=== PATIENT | male | born 1955 | race Caucasian/White ===

== ENCOUNTER 2023-07-26 11:50 | Emergency (ER) | payer MEDICARE, SELFPAY ==
[2023-07-26] VITALS (9 sets, daily range): BP systolic 129–158; BP diastolic 89–100; PULSE 73–89; RESP 15–26; TEMP 36.7; O2SAT 93–96; BMI 30.6
--- NOTE | 2023-07-26 13:23 | XRR_ITS ---
PROCEDURE INFORMATION: Exam: XR Chest Exam date and time: 07/26/2023 1:41 PM Age: 67 years old Clinical indication: Pain; Angina pectoris; Additional info: Cxp TECHNIQUE: Imaging protocol: Radiologic exam of the chest. Views: 1 view. COMPARISON: CR XR chest 2V* [id number] 05/16/2019 9:57 AM FINDINGS: Lungs: Unremarkable. No consolidation. Pleural spaces: Unremarkable. No pleural effusion. No pneumothorax. Heart/Mediastinum: Unremarkable. No cardiomegaly. Bones/joints: Unremarkable. XR/XR chest 1V portable [id number] IMPRESSION: No acute findings.
--- NOTE | 2023-07-26 13:23 | ECG_ITS ---
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 Measurements Intervals [place] Rate: 78 P: 34 MO: 173 QRS: -38 QRSD: 95 T: 38 QT: 355 QTc: 406 Interpretive Statements SINUS RHYTHM WITH SINUS ARRHYTHMIA LEFT AXIS DEVIATION [QRS AXIS < -30] INCOMPLETE RIGHT BUNDLE BRANCH BLOCK [90+ ms QRS DURATION, TERMINAL R IN V1/V2, 40+ ms S IN I/aVL/V4/V5/V6] No previous ECG available for comparison Electronically Signed On 07-26-2023 14:23:33 HYDRO STATION OPERATOR by Pieter Walker M.D. [id number]
--- NOTE | 2023-07-26 13:23 | W.ED.CHESTPA ---
HPI - Chest Pain General: Chief Complaint: Chest Pain Stated Complaint: chest pain Time Seen by Provider: 07/26/23 12:23 History of Present Illness: 67-year-old male presents the emergency department stating that he had some left arm pain prior to going to sleep last night. He states he woke up this morning with no symptoms. He states that approximately 10 AM the left arm pain returned as well as to the left chest wall. He states he did feel nauseated and diaphoretic with some intermittent dizziness. He does report feeling like he was short of breath at that time. He states he did not have nausea or vomiting. Associated symptoms: Reports dyspnea and nausea Risk Factors: Coronary artery disease risk factors: diabetes and hyperlipidemia Review of Systems General: Reports: 10 or more systems reviewed and unremarkable except in HPI and below Card: Reports: chest pain Resp: Reports: dyspnea GI: Reports: nausea PFSH ED PFSH: Medical History (Updated 07/26/23 @ 15:34 by Tai Castro MD) Benign prostate hyperplasia Diabetes Family History (Updated 11/30/21 @ 15:36 by Matilda Morel LPN) Other CAD (coronary artery disease) Cancer Diabetes Social History Smoking and tobacco/nicotine status: never used tobacco/nicotine Physical Exam Narrative: EXAM NARRATIVE: Constitutional: the patient appears well nourished and with normal development. Vital signs reviewed as documented. HENMT: Normocephalic, atraumatic. Extermal ears with normal appearance without drainage. Nose without drainage, normal appearance. Mucus membranes moist. Neck is supple, No jugular venous distension, trachea is midline, no appreciable carotid bruits. No lymphadenopathy. No meningeal signs. Flexion, extension and lateral rotation is without pain. Eyes: Pupils are equal, round, reactive to light and accommodation. No scleral icterus. Extra-ocular movement are intact. Thorax is symmetrical and with equal rise and fall with respirations. Resp: Lungs are clear to auscultation. No wheezes, rales, crackles or ronchi at present. Cardio: Regular rate and rhythm. Positive S1, S2. No appreciable murmurs, rubs or gallops. GI: Abdominal exam reveals normal bowel sounds to all quadrants. No organomegaly. No obvious palpable masses noted. No hepatomegally appreciated. Soft, nontender to palpation. Extremity: Extremities are non-edematous and both femoral and pedal pulses are 2+ and equal bilaterally. Moves all extremities well, sensation in all extremities. Neuro: Alert and oriented x4, person, place, time and situation. Cranial nerves II through XII are grossly intact, there is no focal neurological deficits that I can appreciate at present. Motor strength in the upper and lower extremities are equal and bilateral 5/5. Psych: Cooperative, calm, normal thought process, appropriate judgment. Skin: No lesions, rashes. No gross abnormalities noted. Back: Symmetrical, no obvious deformity, No CVA tenderness Course Vital Signs: Vital signs: Vital Signs Temperature 98.0 F 07/26/23 12:01 Pulse Rate 89 07/26/23 14:29 Respiratory Rate 24 H 07/26/23 14:29 Blood Pressure 144/91 07/26/23 14:29 Pulse Oximetry 96 07/26/23 14:29 Oxygen Delivery Me thod Room Air 07/26/23 14:29 MDM - Chest Pain Medical Decision Making Physical exam completed and documented, I will obtain a CBC, CMP cardiac enzymes as well as EKG and chest x-ray for evaluation. I will provide the patient cardiac dose aspirin as well as nitroglycerin. Differential diagnosis includes costochondritis atypical chest pain, NSTEMI, STEMI, musculoskeletal strain. Medical Records I reviewed the patient's medical records. Lab Data I reviewed the patient's lab results. 07/26/23 12:26 07/26/23 12:26 Radiology Impressions Chest X-Ray 07/26/23 13:23 IMPRESSION: No acute findings. Laboratory Results WBC 5.37 10^3/uL (3.29-11.43) 07/26/23 12: RBC 5.25 10^6/uL (3.85-5.65) 07/26/23 12:26 Hgb 15.30 g/dL (11.27-16.99) 07/26/23 12: Hct 46.5 % (37-53) 07/26/23 12: MCV 88.6 fl (82-101) 07/26/23 12:26 MCH 29.1 pg (27-33) 07/26/23 12: MCHC 32.9 g/dL (30-55) 07/26/23 12: RDW 13.3 % (12.1-15.1) 07/26/23 12:26 Plt Count 181 10^3/cmm (157-399) 07/26/23 12: MPV 10.5 fL (7.4-10.4) H 07/26/23 12: Neut % (Auto) 56.0 % 07/26/23 12: Lymph % (Auto) 30.4 % 07/26/23 12: [place] % (Auto) 10.4 % 07/26/23 12: Eos % (Auto) 1.9 % 07/26/23 12: Baso % (Auto) 0.9 % 07/26/23 12: Neut # (Auto) 3.01 10^3/uL (1.8-7.7) 07/26/23 12: Lymph # (Auto) 1.6 10^3/uL (0.8-4.8) 07/26/23 12: [place] # (Auto) 0.6 10^3/uL (0.2-0.9) 07/26/23 12: Eos # (Auto) 0.1 10^3/uL (0.0-0.8) 07/26/23 12: Baso # (Auto) 0.1 10^3/uL (0.0-0.1) 07/26/23 12: Nucleated RBC % (auto) 0 % 07/26/23 12: Nucleated RBCs # 0.0 /100WBC 07/26/23 12: PT 13.50 SECONDS (12.1-14.9) 07/26/23 12: INR 1.00 (0.8-1.2) 07/26/23 12: APTT 31.3 SECONDS (23.9-36.7) 07/26/23 12:26 Sodium 139 mmol/L (136-145) 07/26/23 12: Potassium 4.4 mmol/L (3.5-5.1) 07/26/23 12: Chloride 105 mmol/L (98-107) 07/26/23 12: Carbon Dioxide 23 mmol/L (22-29) 07/26/23 12: Anion Gap 15.4 (5-19) 07/26/23 12: BUN 18 mg/dL (8-23) 07/26/23 12: Creatinine 1.0 mg/dL (0.7-1.2) 07/26/23 12:26 GFR Calculation 75.0 mL/min (90-130) L 07/26/23 12:26 Glucose 113 mg/dL (65-115) 07/26/23 12:26 Calculated Osmolality 291 mOsm/kg (285-295) 07/26/23 12:26 Calcium 9.6 mg/dL (8.5-10.5) 07/26/23 12:26 Total Bilirubin 0.4 mg/dL (0.15-1.2) 07/26/23 12:26 AST 26 U/L (0-40) 07/26/23 12:26 ALT 36 U/L (0-41) 07/26/23 12:26 Alkaline Phosphatase 108 U/L (40-130) 07/26/23 12:26 Troponin T Baseline 10 ng/L (0-15) 07/26/23 12:26 Troponin T 120 Minute 8.98 ng/L (0-15) 07/26/23 14:18 Delta Troponin T -1.02 ABS# (0-10) L 07/26/23 14:18 NT-Pro-B Natriuret Pep 36 pg/mL (0-125) 07/26/23 12:26 Total Protein 7.4 g/dL (6.6-8.7) 07/26/23 12:26 Albumin 4.6 g/dL (3.5-5.2) 07/26/23 12:26 Globulin 2.8 g/dL (1.3-4.6) 07/26/23 12:26 All radiology interpretation(s) finalized by discharge Discharge Plan Discharge Patient Disposition: Home Clinical Impression: Atypical chest pain Condition: Stable Prescriptions: No Action ibuprofen 200 mg Tablet 400 - 800 mg PO Q6H PRN (Reason: Pain) Discharge Orders: Discharge ED (Routine); Ordered 07/26/23 Ordered By: Tai Castro Referrals: Nicci Lagunas MD [Physician] - Danya Shafer DO [Primary Care Provider] - Discharge Diet: Advance as tolerated Discharge Activity: Resume usual activity Patient Instructions: Opioid Safety, Pain Management Activity Restrictions/Additional Instructions: Activity Restrictions/Additional Instructions: Thank you for choosing [facility] for your healthcare needs today. Please realize that you were seen in the Emergency Department and that we are providing you with an emergency medical screening exam and this may not be complete and all inclusive of all the testing and or medical work-up that you may need to determine your ailment or severity of your illness. It is very important that you follow-up as instructed with your Primary care provider or Specialist for additional evaluation and to discuss your medical treatment plan. You may return to the Emergency Department should you have concerns or if your condition changes or worsens in any way. Coding Level of Care Code ED Grinder Set Up Operator Universal for Klarissa Choi
[2023-07-26] MEDS: aspirin 81 mg Chew Tablet 324 MG PO (13:27)
[2023-07-26 13:37] LABS: Basophils # 0.1 10^3/uL (0.0-0.1); Basophils % 0.9 %; Eosinophils # 0.1 10^3/uL (0.0-0.8); Eosinophils % 1.9 %; Hematocrit 46.5 % (37-53); Lymphocytes # 1.6 10^3/uL (0.8-4.8); Lymphocytes % 30.4 %; Mean Corpuscular HGB Conc 32.9 g/dL (30-55); Mean Corpuscular Hemoglobin 29.1 pg (27-33); Mean Corpuscular Volume 88.6 fl (82-101); Mean Platelet Volume 10.5 fL (7.4-10.4); Monocytes # 0.6 10^3/uL (0.2-0.9); Monocytes % 10.4 %; Neutrophils # 3.01 10^3/uL (1.8-7.7); Nucleated Red Blood Cells % 0 %; Platelet Count 181 10^3/cmm (157-399); Red Blood Count 5.25 10^6/uL (3.85-5.65); Red Cell Distribution Width 13.3 % (12.1-15.1); White Blood Count 5.37 10^3/uL (3.29-11.43)
[2023-07-26 13:44] LABS: Partial Thromboplastin Time 31.3 SECONDS (23.9-36.7)
[2023-07-26 13:47] LABS: Troponin(5th) Baseline 10 ng/L (0-15)
[2023-07-26 13:55] LABS: Alanine Aminotransferase 36 U/L (0-41); Albumin Level 4.6 g/dL (3.5-5.2); Alkaline Phosphatase 108 U/L (40-130); Anion Gap 15.4 (5-19); Aspartate Amino Transferase 26 U/L (0-40); Blood Urea Nitrogen 18 mg/dL (8-23); Calcium 9.6 mg/dL (8.5-10.5); Carbon Dioxide 23 mmol/L (22-29); Chloride 105 mmol/L (98-107); Globulin 2.8 g/dL (1.3-4.6); Glucose 113 mg/dL (65-115); NT Pro B Type Natriuretic Pept 36 pg/mL (0-125); Osmolality Calculated 291 mOsm/kg (285-295); Potassium 4.4 mmol/L (3.5-5.1); Sodium 139 mmol/L (136-145); Total Bilirubin 0.4 mg/dL (0.15-1.2); Total Protein 7.4 g/dL (6.6-8.7)
[2023-07-26] MEDS: nitroglycerin 1 gm/inch oint Pkt 1 INCH TOPICAL (14:07)
[2023-07-26 15:01] LABS: Troponin 5 2HR 8.98 ng/L (0-15); Troponin 5 2HR Delta -1.02 ABS# (0-10)
--- NOTE | 2023-07-26 15:20 | ECG_ITS ---
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 Measurements Intervals Rosalie Rate: 80 P: 20 SC: 169 QRS: -57 QRSD: 90 T: 42 QT: 365 QTc: 424 Interpretive Statements SINUS RHYTHM LEFT AXIS DEVIATION [QRS AXIS < -30] POSSIBLE RIGHT VENTRICULAR CONDUCTION DELAY [RSR (QR) IN V1/V2] Compared to ECG 07/26/2023 11:58:58 No significant change Electronically Signed On 07-28-2023 13:41:34 STAVE BLOCK SPLITTER by Pieter Walker M.D. [id number]
== END 2023-07-26 15:55 | disposition home or self-care (01) ==
PROVIDERS: Emergency Provider Internal Medicine; PCP Family Medicine
DX: R07.89 Other chest pain (principal); E11.9 Type 2 diabetes mellitus without complications
CPT/HCPCS: 36415; 71045; 80053; 83880; 84484; 85025; 85610; 85730; 93005; 93010; 99285

== ENCOUNTER → 2023-08-11 10:42 | Outpatient (BNVA) | payer MEDICARE, SELFPAY | PROVIDERS: PCP Family Medicine; Visit Provider Internal Medicine Cardiovascular Disease | DX: R07.2 Precordial pain (principal); E11.9 Type 2 diabetes mellitus without complications; E78.5 Hyperlipidemia, unspecified; R03.0 Elevated blood-pressure reading, without diagnosis of hypertension | CPT/HCPCS: 99204 ==

== ENCOUNTER 2023-08-23 12:04 | Outpatient (CLI) | payer MEDICARE, SELFPAY ==
--- NOTE | 2023-08-23 12:15 | USCV_ITS ---
Robert Gibbons Age: 67 Gender: M : 1955 Exam Date: 08/23/2023 12:24 Ordering Phys: Nicci Lagunas MD ([email or web address]) Technologist: Ana Maria Valenzuela Exam Location: [facility] [place] Indication: CHEST PAIN BP: 145 / 101 HR: 62 Rhythm: Sinus Technical Quality: Adequate MEASUREMENTS (Male / Female) Normal Values 2D ECHO LV Diastolic Diameter PLAX 4.1 cm 4.2 - 5.9 / 3.9 - 5.3 cm LV Systolic Diameter PLAX 3.4 cm LV Chamber Size 3.3 cm IVS Diastolic Thickness 1.1 cm 0.6 - 1.0 / 0.6 - 0.9 cm IVS Systolic Thickness 1.3 cm LVPW Diastolic Thickness 1.8 cm 0.6 - 1.0 / 0.6 - 0.9 cm LVPW Systolic Thickness 1.8 cm RV Chamber Size 2.8 cm LV Ejection Fraction 2D Teich 24.4 % LV Ejection Fraction MOD 2C 52.4 % LV Ejection Fraction 2C AL 53.3 % LA Diameter 3.2 cm LA Width 3.0 cm LA Height 4.3 cm RA Width 3.1 cm RA Height 3.7 cm Aorta at Sinotubular Diameter 3.4 cm IVC Diameter 1.5 cm M-MODE Aortic Annulus Diameter 3.9 cm LA Ao Ratio MM 1.1 MV E Point Septal Separation 0.8 cm DOPPLER AV Peak Velocity 126.0 cm/s LVOT Peak Velocity 84.0 cm/s MV Area PHT 2.8 cm squared Mitral E to A Ratio 0.8 MV E' Velocity 29.5 cm/s Mitral E to MV E' Ratio 9.7 Mitral E to LV E' Lateral Ratio 9.4 Mitral E to LV E' Septal Ratio 10.1 TR Peak Velocity 244.3 cm/s TR Peak Gradient 23.9 mmHg TR Mean Velocity 199.5 cm/s TR Mean Gradient 17.3 mmHg TR Velocity Time Integral 75.4 cm Right Atrial Pressure 3.0 mmHg Pulmonary Artery Systolic Pressu 26.9 mmHg RV Acceleration Time 0.1 s RV Ejection Time 0.4 s RV AcT/ET 0.3 FINDINGS Left Ventricle Mild diffuse hypokinesia left ventricular ejection fraction of 52%mild left ventricular hypertrophy. Grade I/IV diastolic dysfunction (abnormal relaxation filling pattern), normal to mildly elevated filling pressures. Right Ventricle The right ventricle is normal in size and function. Right Atrium The right atrium is normal in size. Left Atrium Mildly increased left atrial size. Mitral Valve No gross abnormalities noted Aortic Valve Trace to mild aortic valve regurgitation. Thickened aortic valve. Tricuspid Valve Mild tricuspid valve regurgitation. Pulmonic Valve No gross abnormalities noted . Pericardium Normal pericardium without effusion. Aorta Normal ascending aorta dimension. IVC Normal inferior vena cava. CONCLUSIONS Mild diffuse hypokinesia left ventricular ejection fraction of 52%mild left ventricular hypertrophy. Grade I/IV diastolic dysfunction (abnormal relaxation filling pattern), normal to mildly elevated filling pressures. Trace to mild aortic valve regurgitation. Thickened aortic valve. Mild tricuspid valve regurgitation. There is no pericardial effusion. There are no intracardiac masses. No similar previous studies are available for comparison Dr Nicci Lagunas MD [facility] (Electronically Signed) Final Date: 28 August 2023 16:46 S
== END 2023-08-23 12:05 | disposition home or self-care (01) ==
LOC: RAD 12:05
PROVIDERS: PCP Family Medicine; Visit Provider Internal Medicine Cardiovascular Disease
DX: I08.2 Rheumatic disorders of both aortic and tricuspid valves (principal); R06.09 Other forms of dyspnea
CPT/HCPCS: 93306

== ENCOUNTER 2023-10-03 11:35 | Outpatient (CLI) | payer MEDICARE, SELFPAY ==
[2023-10-03 11:50] VITALS: BMI 30.9
--- NOTE | 2023-10-03 11:51 | ECG_ITS ---
[facility] Test Date: 2023-10-03 Pat Name: Robert Gibbons Department: Room: Gender: Male Lease Examiner: Jazzmine Roberts : 1955 Requested By: Nicci Lagunas Order Number: [id number] Araujo MD: Toni Gordon M.D. Interpretive Statements NAME OF STUDY: TREADMILL STRESS TEST INDICATION: [Chest Pain, ] EXERCISE DATA: The patient was exercised by Robert protocol. Baseline heart rate was 83 beats per minute. Baseline blood pressure was 120/79 millimeters of mercury. Target heart rate was 131 beats per minute. Maximum heart rate achieved was 139, which was 106 % of the target heart rate. Maximum blood pressure was 167/79 millimeters of mercury. Total exercise time was 7 minutes 38 seconds. Maximum METs achieved was 10.2. The reason for ending the test was completion of protocol. The patient complained of shortness of breath during the stress test, which then resolved at the end of the test. ELECTROCARDIOGRAM: BASELINE: Showed sinus rhythm, normal axis, no significant ST-T changes at the baseline noted. [] EXERCISE: At the peak exercise level, [] No significant ST-T changes suggestive of ischemia noted. [] RECOVERY: During the recovery period, heart rate dropped appropriately. No significant ST-T changes in the recovery suggestive of ischemia noted. [] CONCLUSION: 1. Exercise capacity is good. 2. Heart rate response was appropriate. 3. Blood pressure response was appropriate. 4. Symptoms not suggestive of ischemia. 5. Stress testing does not suggest ischemia. Electronically Signed On 10-09-2023 12:48:08 STENCIL MAKER by Toni Gordon M.D. [id number]
[2023-10-03 13:13] VITALS: BP 122/85; PULSE 99
== END 2023-10-03 11:36 | disposition home or self-care (01) ==
PROVIDERS: PCP Family Medicine; Visit Provider Internal Medicine Cardiovascular Disease
DX: R07.9 Chest pain, unspecified (principal)
CPT/HCPCS: 93017

== ENCOUNTER 2023-10-14 12:27 | Emergency (ER) | payer MEDICARE, SELFPAY ==
[2023-10-14 12:31] VITALS: BP 135/92; PULSE 89; RESP 16; TEMP 36.4; O2SAT 96
--- NOTE | 2023-10-14 14:55 | W.ED.EXTPRO ---
HPI - Extremity Problem General: Chief complaint: General Medical Stated complaint: left arm numbness ad tingle Time Seen by Provider: 10/14/23 14:34 Source: patient Mode of arrival: ambulatory Limitations: no limitations History of Present Illness: Patient is a very nice 68-year-old male who presents to ED today with a complaint of paresthesias to his left arm and hand. Patient states he has had these intermittently since July 2023. He states normally he will have countless episodes a day where he feels portions of his arm will be asleep. He states the episodes normally only last for a few seconds before subsiding on their own. He states he feels the sensation in his shoulder and then states it slowly radiates distally until it reaches his hand and states it normally only affects his first 3 digits. Patient states he has not found any correlation with the position of his arms or neck in regards to symptoms. He states one time he had associated chest pain but has never had this since (this was in July and he was seen here in the ED at that time-since followed up with cardiology and had a negative stress test just a few weeks ago with results as follows): CONCLUSION: 1. Exercise capacity is good. 2. Heart rate response was appropriate. 3. Blood pressure response was appropriate. 4. Symptoms not suggestive of ischemia. 5. Stress testing does not suggest ischemia. He has never noticed any swelling or color/temperature changes to the extremity. He denies neck pain. Has never experienced any weakness in the arm. No other neurologic complaints. He is presenting today stating this episode has lasted longer than previous ones. MD Complaint: other (L arm/hand paresthesias) Location: left and upper extremity Radiation: distal Relieving factors: nothing Exacerbating factors: nothing Associated symptoms: Reports no associated symptoms; Deny chest pain, fever(s) or rash Review of Systems Const: Denies: fever(s), chills, body aches, fatigue or malaise Card: Denies: chest pain, palpitations, irregular heart rhythm, edema, swelling of feet/ankles, lightheadedness, syncope, pre-syncope, dyspnea on exertion, orthopnea or leg pain with exertion Resp: Denies: dyspnea Musc: Denies: neck pain, back pain, extremity pain, extremity swelling, joint pain, joint swelling, joint redness, joint warmth, joint stiffness, limited range of motion, muscle cramps, muscle weakness or decrease in muscle mass Skin/Breast: Denies: rash Neuro: Reports: sensory changes (L arm/hand); Denies: headache(s), numbness in extremities or weakness in extremities PFSH ED PFSH: Medical History Diabetes Benign prostate hyperplasia Family History Other CAD (coronary artery disease) Cancer Diabetes Social History Smoking and tobacco/nicotine status: never used tobacco/nicotine Physical Exam Const: COMMON NORMALS: no acute distress, average body habitus, patient oriented x3, no limitations, healthy appearing, alert and well nourished GENERAL APPEARANCE: cooperative ORIENTATION/CONSCIOUSNESS: Yes awake, Yes oriented to person, Yes oriented to place and Yes oriented to time HENMT: COMMON NORMALS: normocephalic and atraumatic HEAD & SCALP: normal to inspection, normocephalic and atraumatic FACE & SINUS: normal facial exam and face symmetric Eye: COMMON NORMALS: Equal, round and reactive pupils present and EOMs intact bilaterally GENERAL EYE: appearance normal, both eyes and all related structures and normal light reflex PUPIL: Yes Equal, round and reactive pupils present DIRECT OPHTHALMOSCOPY: Yes normal light reflex Neck/C-Spine: COMMON NORMALS: full ROM and no lymphadenopathy GENERAL: Yes normal visual inspection CERVICAL SPINE: No Cervical spine tenderness, No Paracervical muscle tenderness and No Trapezius muscle tenderness Resp: COMMON NORMALS: normal respiratory effort and clear to auscultation bilaterally AUSCULTATION: clear to auscultation bilaterally Cardio: COMMON NORMALS: regular rate and regular rhythm RATE: regular rate RHYTHM: regular rhythm Back/Pelvis: COMMON NORMALS: thoracic and lumbar spine normal to inspection Extremity: COMMON NORMALS: normal to inspection, full ROM, capillary refill normal, no joint enlargement, no clubbing, cyanosis or edema, no calf tenderness and no pedal edema GENERAL: Yes normal exam except as noted OTHER: pt has full strength throughout all cervical myotomes; sensory was tested against other extremity and patient reporting equal sensation throughout extremity except for the dorsum of the left hand in which he felt like sensation was dulled; there is no swelling/edema noted; extremities are equal color/temp; pulses throughout L arm are intact with brisk cap refill; symptoms are not affected by elevation of extremity; negative specialized testing for carpal tunnel Neuro: COMMON NORMALS: patient oriented x3, CN's II-XII intact bilaterally, moves all extremities, no focal motor deficits and gait normal SENSORIUM/ORIENTATION: Yes alert, Yes oriented to person, Yes oriented to place and Yes oriented to time SENSORY EXAM: Yes other (reporting altered sensation to dorsum of L hand) MOTOR EXAM: 5/5 motor strength present throughout Skin: COMMON NORMALS: no rashes or lesions noted GENERAL SKIN EXAM: no rashes or lesions noted Course Vital Signs: Vital signs: Vital Signs Temperature 97.5 F L 10/14/23 15:17 Pulse Rate 89 10/14/23 15:17 Respiratory Rate 16 10/14/23 15:17 Blood Pressure 135/92 10/14/23 15:17 Pulse Oximetry 96 10/14/23 15:17 MDM - Extremity (Nontraumatic) Medical Decision Making Patient here for intermittent paresthesias to the left arm and hand that have been present since . He has no other neurologic complaints on history or physical exam. When compared to contralateral extremity, patient reporting sensation feels the same bilaterally apart from the dorsum of his left hand that he feels is dulled. Strength is intact. He has no neck pain or chest pain. At this time I do not have any concern for CAD, acute arterial occlusion, DVT, cervical cord compression, TIA/CVA, or other emergent etiology for his symptoms. I feel blood work and/or imaging from an emergency standpoint overall would be fairly low yield. Recommend patient follow-up with his primary care provider for further evaluation. Return ED precautions given. No radiology studies performed this visit Discharge Plan Discharge Patient Disposition: Home Clinical Impression: Paresthesia of left upper limb Condition: Stable Prescriptions: No Action ibuprofen 200 mg Tablet 400 - 800 mg PO Q6H PRN (Reason: Pain) Discharge Orders: Discharge ED (Routine); Ordered 10/14/23 Ordered By: Shannan Raymond Referrals: Danya Shafer DO [Primary Care Provider] - Patient Instructions: Paresthesia (ED) Activity Restrictions/Additional Instructions: As we discussed I would like you to follow-up with your primary care provider for further evaluation in regards to the paresthesias involving your left hand and arm. You need to return to the emergency department if you notice any swelling to the arm, color or temperature changes including redness, paleness/pallor, coolness, weakness, other neurologic deficits such as leg weakness, facial drooping, slurred speech, altered mental status, or any other concerns you may have. Coding Level of Care Code ED Public Health Service Officer for Klarissa Choi
[2023-10-14 15:17] VITALS: BP 135/92; PULSE 89; RESP 16; TEMP 36.4; O2SAT 96
== END 2023-10-14 15:18 | disposition home or self-care (01) ==
PROVIDERS: Emergency Provider Physician Assistant; PCP Family Medicine
DX: R20.2 Paresthesia of skin (principal); E11.9 Type 2 diabetes mellitus without complications
CPT/HCPCS: 99281

== ENCOUNTER → 2023-10-18 09:52 | Outpatient (BNVA) | payer MEDICARE, SELFPAY | PROVIDERS: PCP Family Medicine; Visit Provider Nurse Practitioner Family | DX: R07.2 Precordial pain (principal); I10 Essential (primary) hypertension | CPT/HCPCS: 99214 ==

== ENCOUNTER → 2023-11-14 08:58 | Outpatient (BNVA) | payer MEDICARE, SELFPAY | PROVIDERS: PCP Family Medicine; Visit Provider Nurse Practitioner Family | DX: I10 Essential (primary) hypertension (principal) | CPT/HCPCS: 99214 ==

== ENCOUNTER → 2024-04-16 11:26 | Outpatient (BNVA) | payer MEDICARE, SELFPAY | PROVIDERS: PCP Family Medicine; Visit Provider Internal Medicine Cardiovascular Disease | DX: I10 Essential (primary) hypertension (principal); E78.5 Hyperlipidemia, unspecified; Z87.891 Personal history of nicotine dependence | CPT/HCPCS: 99212 ==

== ENCOUNTER → 2025-04-16 13:02 | Outpatient (BNVA) | payer MEDICARE, SELFPAY | PROVIDERS: PCP Family Medicine; Visit Provider Internal Medicine Cardiovascular Disease | DX: R07.9 Chest pain, unspecified (principal); I10 Essential (primary) hypertension; I51.7 Cardiomegaly; E34.9 Endocrine disorder, unspecified; Z87.891 Personal history of nicotine dependence | CPT/HCPCS: 99214 ==